=== PATIENT | male | born 1960 | race Caucasian/White ===

== ENCOUNTER 2018-12-11 19:19 | Inpatient (IN) | payer BC ==
[~2018-12-11] VITALS: Ht 177.8 cm; Wt 111.1 kg
[~2018-12-11 19:19] MED LIST: ESCI20TA PO; NAP500T PO; VERA1TAB9 PO
[2018-12-11] MEDS ORDERED: SODIUM CHLORIDE 0.9% 1,000 ML IV ONE (21:05)
[2018-12-11 21:28] LABS: Potassium 3.7 mmol/L (3.5-5.1)
[2018-12-11 21:31] LABS: Albumin 4.2 g/dL (3.4-5.0); Calcium 8.9 mg/dL (8.5-10.1)
[2018-12-11 21:33] LABS: Lipase 643 U/L (73-393)
[2018-12-11 21:34] LABS: Basophils # (auto) 0 uL; Basophils % (auto) 0.9 % (0.0-2.0); Eosinophils # (auto) 0 uL; Eosinophils % (auto) 0.9 % (0.0-7.0); Hemoglobin 14.9 g/dL (13.5-17.5); Lymphocytes # (auto) 1.3 uL; Lymphocytes % (auto) 28.5 % (10.0-50.0); Mean Corpuscular Hemoglobin 30.9 pg (28.0-32.0); Mean Corpuscular Hgb Conc. 34.7 g/dL (32.0-36.0); Monocytes # (auto) 0.8 uL; Monocytes % (auto) 17.2 % (0.0-12.0); Neutrophils # (auto) 2.4 uL; Neutrophils % (auto) 52.5 % (37.0-80.0); Nucleated Red Blood Cells % 0.1 %; Platelet Count (auto) 261 10^3/uL (140-450); Red Blood Cells 4.83 10^6/uL (4.5-5.90); White Blood Cell 4.6 10^3/uL (4.4-10.8)
[2018-12-11 21:37] LABS: BUN/Creatinine Ratio 8.9; Bilirubin, Total 0.3 mg/dL (0.2-1.0); Total Protein 8.1 g/dL (6.4-8.2)
[2018-12-11 22:31] LABS: INR 0.97 (0.9-1.15); Partial Thromboplastin Time 29.4 sec (23.78-33.04); Prothrombin Time 9.8 sec (9.27-12.13)
[2018-12-11 22:41] LABS: Urine Bacteria NONE SEEN /hpf (None Seen); Urine Blood Negative /uL (Negative); Urine Mucus FEW (None Seen); Urine Specific Gravity 1.022 (1.001-1.035); Urine WBC 1 /hpf (0 - 3)
[2018-12-11] MEDS ORDERED: IOHEXOL 300 MG/ML 100ML BOTTLE IJ ONE (22:44)
[2018-12-11] MEDS ORDERED: SODIUM CHLORIDE 0.9% 500 ML IV ONE (23:00)
[2018-12-12] MEDS ORDERED: ONDANSETRON HCL 4 MG/2 ML VIAL IV PRN (03:15)
[2018-12-12] MEDS ORDERED: HYDROcodone-ACET 5/325MG TAB PO PRN (03:15)
[2018-12-12] MEDS ORDERED: ACETAMINOPHEN 500 MG TAB PO PRN (03:15)
[2018-12-12] MEDS ORDERED: SODIUM CHLORIDE 0.9% 1,000 ML IV ONE (04:00)
[2018-12-12 05:52] LABS: Hematocrit 37.8 % (41.0-53.0); Hemoglobin 13.1 g/dL (13.5-17.5); Mean Corpuscular Hemoglobin 31.2 pg (28.0-32.0); Mean Corpuscular Hgb Conc. 34.8 g/dL (32.0-36.0); Mean Corpuscular Volume 89.7 fL (80.0-100.0); Platelet Count (auto) 218 10^3/uL (140-450); Red Blood Cells 4.21 10^6/uL (4.5-5.90); Red Cell Distribution Width 12.7 % (11.8-14.3); White Blood Cell 4.1 10^3/uL (4.4-10.8)
[2018-12-12 06:12] LABS: Basophils % (manual) 0 (0.0-2.0); Blast Cells 0; Metamyelocytes % 0; Myelocytes % 0; Promyelocytes % 0; Reactive Lymphocytes 0
[2018-12-12 06:16] LABS: BUN/Creatinine Ratio 9.5; Potassium 3.6 mmol/L (3.5-5.1)
[2018-12-12] MEDS: buPROPion HCL 75 MG TAB PO SCH ×2 (07:34→19:25)
[2018-12-12 07:51] LABS: Band Neutrophils % (manual) 7; Eosinophils % (manual) 1 (0-7); Lymphocytes % (manual) 35 (10.0-50.0); Monocytes % (manual) 13 (0-12)
[2018-12-12] MEDS: VERAPAMIL HCL 180mg SR tab PO SCH (10:05)
--- NOTE | 2018-12-12 15:10 | NUR ---
MS admit from ER Patient admitted to [facility]. Patient oriented to primary RN, unit, room, bed, and unit policies regarding patient care and visiting hours. Patient weighed by bed scale and encouraged to call if they need something. All questions and concerns addressed, patient verbalized understanding. Bed in lowest, locked position with side rails up x 2 and call light within reach.
[2018-12-12 15:20] VITALS: BP 154/72
[2018-12-12 17:00] VITALS: BP 138/74
[2018-12-12] MEDS ORDERED: PANT1INJ3 IV (19:10)
[2018-12-12] MEDS ORDERED: VERA1TAB9 PO (19:10)
[2018-12-12] MEDS ORDERED: BUPR100T14 PO (19:11)
--- NOTE | 2018-12-12 19:20 | NUR ---
Opening Shift Note Assumed care of patient, awake and alert. No S/S of distress/SOB or pain. Instructed on POC and to call for assist PRN. Bed in lowest locked position, call light within reach, side rails up x2. Will continue to monitor for changes Q1hr and PRN.
--- NOTE | 2018-12-12 19:30 | NUR ---
CLOSING NOTE Endorsed care of patient to NOC RNPurnima. Patient's family at bedside.
[2018-12-12 22:26] VITALS: BP 143/74
[2018-12-13 05:52] VITALS: BP 147/73
[2018-12-13] MEDS: buPROPion HCL 75 MG TAB PO SCH ×2 (06:20→17:48)
[2018-12-13 07:23] LABS: Basophils # (auto) 0 uL; Basophils % (auto) 0.6 % (0.0-2.0); Eosinophils # (auto) 0.1 uL; Eosinophils % (auto) 1.6 % (0.0-7.0); Hematocrit 40.8 % (41.0-53.0); Lymphocytes # (auto) 1.1 uL; Lymphocytes % (auto) 25.5 % (10.0-50.0); Mean Corpuscular Hgb Conc. 34.4 g/dL (32.0-36.0); Monocytes # (auto) 0.7 uL; Monocytes % (auto) 16.8 % (0.0-12.0); Neutrophils # (auto) 2.3 uL; Neutrophils % (auto) 55.5 % (37.0-80.0); Platelet Count (auto) 239 10^3/uL (140-450); Red Blood Cells 4.53 10^6/uL (4.5-5.90); Red Cell Distribution Width 12.8 % (11.8-14.3); White Blood Cell 4.2 10^3/uL (4.4-10.8)
[2018-12-13 07:41] LABS: Potassium 3.9 mmol/L (3.5-5.1)
[2018-12-13 07:45] LABS: BUN/Creatinine Ratio 12.2; Calcium 8.1 mg/dL (8.5-10.1)
[2018-12-13 08:00] VITALS: BP 155/80
[2018-12-13] MEDS: VERAPAMIL HCL 180mg SR tab PO SCH (09:15)
--- NOTE | 2018-12-13 10:50 | NUR ---
NEW ORDER FRPM DR. NICOLE FOR IV FLUIDS, SEE MD ORDER AND EMR FOR NEW ORDERS.
[2018-12-13] MEDS ORDERED: D5W/SOD CHLO 0.9% 1,000 ML IV SCH (11:00)
--- NOTE | 2018-12-13 11:01 | NUR ---
PATIENT REFUSING TO HAVE IV FLUIDS AT THIS TIME. DISCUSSED RISKS AND BENEFITS OF HYDRATION. PATIENT STILL REFUSES AT THIS TIME.
--- NOTE | 2018-12-13 11:35 | NUR ---
POSITIVE C.DIFF RECEIVED PHONE CALL FROM DOM VARELA. PT POSITIVE FOR C.DIFF. WILL INFORM
--- NOTE | 2018-12-13 11:45 | NUR ---
SPOKE TO SPOKE TO DR. NICOLE RE: C.DIFF. ORDERS RECEIVED.
[2018-12-13] MEDS: VANCOMYCIN HCL 125MG/5ML ORAL SOL GT SCH ×2 (13:10→17:48)
[2018-12-13] MEDS ORDERED: ceFAZolin 1GM/50ML 100 ML IV ONE (13:11)
[2018-12-13 14:11] VITALS: BP 159/79
[2018-12-13 16:00] VITALS: BP 145/76
--- NOTE | 2018-12-13 17:18 | NUR ---
RECEIVED TELEPHONE CALL FROM JORDAN LAND ACQUISITION ANALYST FROM [facility]. STEVEN STATES SHE IS NOT SURE IF PATIENT WILL BE ABLE TO BE TRANSPORTED TO [facility]. STEVEN STATES SHE WILL CALL BACK.
--- NOTE | 2018-12-13 17:35 | NUR ---
TRANSFER RECEIVED PHONE CALL FROM ALIX HARRIS AT [facility]. STEVEN STATING PATIENT TO BE TRANSFERRED TO [facility] ROOM 199-A. REPORT TO BE CALLED TO [phone] EXT. [phone]. [facility] TO TO TRANSFER PATIENT AT 1830.
[2018-12-13 17:56] VITALS: BP 155/80
--- NOTE | 2018-12-13 18:00 | NUR ---
REPORT CALLED [facility]. REPORT GIVEN TO ALONA RIGGINS. ALL QUESTIONS ANSWERED. NUMBER PROVIDED FOR CALL BACK. CONTACTED PATIENTS , OBINNA TO INFORM OF TRANSFER AND BED. AWARE.
--- NOTE | 2018-12-13 19:38 | NUR ---
Patient was discharged by medical transportation to [facility] at 1938. Patient was accompanied by his who was sitting at bedside at time of patient leaving the floor. Patient was A/Ox4 and complaining of no discomfort or distress. Patient was stable and in no pain.
== END 2018-12-13 19:38 | disposition short-term general hospital (02) | DRG 371 ==
LOC: ER 19:23 → OVERFLOW 12-12 03:21 → CENTRAL 12-12 15:04
PROVIDERS: ADMIT Nurse Practitioner Family; ATTEND Internal Medicine
DX: A04.72 Enterocolitis due to Clostridium difficile, not specified as recurrent (principal); K85.90 Acute pancreatitis without necrosis or infection, unspecified; E66.01 Morbid (severe) obesity due to excess calories; F32.9 Major depressive disorder, single episode, unspecified; I10 Essential (primary) hypertension; M51.36 Other intervertebral disc degeneration, lumbar region; N28.1 Cyst of kidney, acquired; Z78.9 Other specified health status; Z79.899 Other long term (current) drug therapy; Z68.35 Body mass index [BMI] 35.0-35.9, adult
CPT/HCPCS: 36415; 74177; 76705; 80048; 80053; 81001; 83690; 84484; 85007; 85025; 85027; 85610; 85730; 87045; 87493; 87899; 94761; 96360; 96361; G0378; J0690; J7042

== ENCOUNTER 2024-05-07 11:30 | Emergency (ER) | payer BC, SELFPAY ==
[~2024-05-07] VITALS: Ht 177.8 cm; Wt 113.7 kg
[~2024-05-07 11:30] MED LIST changes: +BUPR-346 PO; -ESCI20TA PO; -NAP500T PO; +PANT1INJ3 IV; +VERA120T92 PO; -VERA1TAB9 PO
[2024-05-07 12:04] VITALS: BP 144/83; RESP 20; O2SAT 96
[2024-05-07 12:07] VITALS: PULSE 115
[2024-05-07] MEDS ORDERED: SODIUM CHLORIDE 0.9% 500 ML IV ONE (12:30)
[2024-05-07] MEDS ORDERED: PANTOPRAZOLE 40 MG/10 ML VIAL INJ IV ONE (12:30)
[2024-05-07 13:55] LABS: Alanine Aminotransferase 24 U/L (7-40); Albumin 5.4 g/dL (3.2-4.8); Alkaline Phosphatase 92 U/L (46-116); Anion Gap 10 (5-15); Aspartate Aminotransferase 11 U/L (13-40); BUN/Creatinine Ratio 7.7 (10.0-20.0); Bilirubin, Total 0.6 mg/dL (0.2-1.0); Blood Urea Nitrogen 9 mg/dL (9-23); Calcium 9.7 mg/dL (8.7-10.4); Carbon Dioxide 26 mmol/L (20-30); Chloride 102 mmol/L (98-107); Glucose 118 mg/dL (74-106); Lipase 58 U/L (12-53); Potassium 3.8 mmol/L (3.5-5.1); Sodium 138 mmol/L (136-145)
[2024-05-07 13:56] LABS: Basophils # (auto) 0 10 ^3/uL (0-0.2); Basophils % (auto) 0.2 % (0.0-2.0); Eosinophils # (auto) 0.2 10 ^3/uL (0-0.8); Eosinophils % (auto) 1.1 % (0.0-7.0); Hematocrit 45.9 % (41.0-53.0); Hemoglobin 15.6 g/dL (13.5-17.5); Lymphocytes # (auto) 2.1 10 ^3/uL (0.4-5.4); Mean Corpuscular Hemoglobin 31.1 pg (28.0-32.0); Mean Corpuscular Volume 91.3 fL (80.0-100.0); Monocytes # (auto) 1.4 10 ^3/uL (0-1.3); Monocytes % (auto) 9.5 % (0.0-12.0); Neutrophils # (auto) 10.7 10 ^3/uL (1.6-8.6); Neutrophils % (auto) 74.2 % (37.0-80.0); Nucleated Red Blood Cells % 0.3 %; Platelet Count (auto) 358 10^3/uL (140-450); Red Blood Cells 5.03 10^6/uL (4.5-5.90); Red Cell Distribution Width 13.1 % (11.8-14.3); Total Protein 8.2 g/dL (5.7-8.2); White Blood Cell 14.4 10^3/uL (4.4-10.8)
[2024-05-07] MEDS ORDERED: LACTATED RINGER'S 1,000 ML IV SCH (14:00)
[2024-05-07] MEDS ORDERED: MORPHINE SULFATE INJ 2 MG/ml SYRG IV ONE (14:00)
[2024-05-07 14:06] LABS: Lactic Acid w/Reflex 2.8 mmol/L (0.4-2.0)
[2024-05-07 15:14] LABS: Triglycerides 100 mg/dL (< 150)
[2024-05-07 15:15] LABS: LDL Cholesterol 121 mg/dL (< 100)
[2024-05-07 15:16] LABS: Cholesterol 195 mg/dL (< 200); HDL Cholesterol 63 mg/dL (40-59)
[2024-05-08] MEDS ORDERED: VENL1TAB99 PO (13:02)
[2024-05-08] MEDS ORDERED: LISI-275 PO (13:02)
== END 2024-05-07 18:09 | disposition left against medical advice (07) ==
LOC: ER 11:30
DX: A41.9 Sepsis, unspecified organism (principal); K40.90 Unilateral inguinal hernia, without obstruction or gangrene, not specified as recurrent; K85.90 Acute pancreatitis without necrosis or infection, unspecified; I10 Essential (primary) hypertension; Z98.890 Other specified postprocedural states; Z79.899 Other long term (current) drug therapy
CPT/HCPCS: 36415; 71045; 74176; 80053; 80061; 80320; 82150; 83605; 83690; 83880; 84484; 85025; 87040; 93005

== ENCOUNTER 2024-05-07 19:20 | Inpatient (IN) | payer SELFPAY ==
[~2024-05-07] VITALS: Ht 182.9 cm; Wt 115.0 kg
[2024-05-07] MEDS: LACTATED RINGER'S 1,000 ML IV ONE
[2024-05-07] MEDS: MORPHINE SULFATE INJ 2 MG/ml SYRG IV ONE
[2024-05-07 19:59] LABS: Urine Bacteria None Seen /hpf (None Seen)
[2024-05-07 20:17] LABS: Urine Blood Negative /uL (Negative); Urine Clarity Turbid (Clear); Urine Color Yellow (Yellow); Urine Mucus FEW (None Seen); Urine Protein, UAD 1+ (Negative); Urine Specific Gravity 1.023 (1.001-1.035); Urine Urobilinogen 2 mg/dL (Negative); Urine WBC 7 /hpf (0 - 3)
[2024-05-08] VITALS (8 sets, daily range): BP systolic 145–158; BP diastolic 74–88; PULSE 88–110; RESP 18–21; TEMP 97.2–99.1; O2SAT 95–100
[2024-05-08] MEDS: PANTOPRAZOLE 40 MG/10 ML VIAL INJ IV ONE
[2024-05-08 03:29] LABS: Basophils # (auto) 0.1 10 ^3/uL (0-0.2); Basophils % (auto) 0.7 % (0.0-2.0); Eosinophils # (auto) 0 10 ^3/uL (0-0.8); Eosinophils % (auto) 0.2 % (0.0-7.0); Hematocrit 40.6 % (41.0-53.0); Hemoglobin 13.8 g/dL (13.5-17.5); Lymphocytes # (auto) 1.6 10 ^3/uL (0.4-5.4); Lymphocytes % (auto) 11.3 % (10.0-50.0); Mean Corpuscular Hemoglobin 31.2 pg (28.0-32.0); Mean Corpuscular Volume 91.6 fL (80.0-100.0); Monocytes # (auto) 1.5 10 ^3/uL (0-1.3); Monocytes % (auto) 10.7 % (0.0-12.0); Neutrophils # (auto) 10.7 10 ^3/uL (1.6-8.6); Neutrophils % (auto) 77.1 % (37.0-80.0); Platelet Count (auto) 271 10^3/uL (140-450); Red Blood Cells 4.43 10^6/uL (4.5-5.90); Red Cell Distribution Width 13.2 % (11.8-14.3); White Blood Cell 13.8 10^3/uL (4.4-10.8)
[2024-05-08 03:45] LABS: Alanine Aminotransferase 20 U/L (7-40); Albumin 4.8 g/dL (3.2-4.8); Alkaline Phosphatase 77 U/L (46-116); Anion Gap 6 (5-15); Aspartate Aminotransferase 12 U/L (13-40); BUN/Creatinine Ratio 12.2 (10.0-20.0); Blood Urea Nitrogen 16 mg/dL (9-23); Calcium 8.9 mg/dL (8.7-10.4); Carbon Dioxide 24 mmol/L (20-30); Chloride 106 mmol/L (98-107); Glucose 114 mg/dL (74-106); Lipase 45 U/L (12-53); Potassium 3.9 mmol/L (3.5-5.1); Sodium 136 mmol/L (136-145)
[2024-05-08 03:46] LABS: Bilirubin, Total 0.7 mg/dL (0.2-1.0); Total Protein 7.3 g/dL (5.7-8.2)
[2024-05-08] MEDS: SODIUM CHLORIDE 0.9% 1,000 ML IV SCH (05:20)
[2024-05-08] MEDS: ONDANSETRON HCL 4 MG/2 ML VIAL IV PRN (05:49)
[2024-05-08] MEDS: MORPHINE SULFATE INJ 2 MG/ml SYRG IV PRN (05:49)
[2024-05-08] MEDS: PANTOPRAZOLE 40 MG/10 ML VIAL INJ IV SCH (09:46)
[2024-05-08] MEDS ORDERED: LISI-275 PO (13:02)
[2024-05-08] MEDS ORDERED: VENL1TAB99 PO (13:02)
[2024-05-08] MEDS: LISINOPRIL 5 MG TAB PO SCH (17:30)
[2024-05-08] MEDS: ACETAMINOPHEN 325 MG TAB PO PRN (21:08)
[2024-05-08] MEDS: VERAPAMIL HCL 120 mg ER tab PO SCH (21:43)
[2024-05-08] MEDS: VENLAFAXINE HCL 37.5MG TABLET PO SCH (21:43)
[2024-05-08] MEDS: buPROPion HCL 100 MG TAB PO SCH (21:44)
[2024-05-09 01:00] VITALS: BP 111/58; PULSE 79; RESP 18; TEMP 97.1; O2SAT 95
[2024-05-09 05:00] VITALS: BP 124/70; PULSE 69; RESP 18; TEMP 97; O2SAT 97
[2024-05-09 08:15] VITALS: PULSE 78; RESP 18; O2SAT 98
[2024-05-09 09:00] VITALS: BP 138/68; PULSE 78; RESP 18; TEMP 98.9; O2SAT 98
[2024-05-09 12:00] VITALS: BP 161/81; PULSE 74; RESP 19; TEMP 98.6; O2SAT 98
[2024-05-09 12:15] VITALS: BP 161/81; PULSE 74; RESP 19; TEMP 98.6; O2SAT 98
== END 2024-05-09 13:58 | disposition home or self-care (01) | DRG 438 ==
LOC: ER 19:20 → OVERFLOW 05-08 03:00 → WEST WING 05-08 10:33
PROVIDERS: ADMIT Nurse Practitioner; ATTEND Family Medicine
DX: K85.90 Acute pancreatitis without necrosis or infection, unspecified (principal); R65.11 Systemic inflammatory response syndrome (SIRS) of non-infectious origin with acute organ dysfunction; K86.1 Other chronic pancreatitis; G89.4 Chronic pain syndrome; I10 Essential (primary) hypertension; K40.90 Unilateral inguinal hernia, without obstruction or gangrene, not specified as recurrent; Z79.899 Other long term (current) drug therapy
CPT/HCPCS: 36415; 80053; 81001; 83690; 85025; 87040; 99291; G0378; J2405; J2470